=== PATIENT | female | born 1995 | race Two or more races ===

== ENCOUNTER 2024-11-14 11:45 | Emergency (ER) | payer MEDICAID, SELFPAY ==
[2024-11-14 11:51] VITALS: BP 153/83; PULSE 84; RESP 18; TEMP 36.8; O2SAT 98; BMI 28.3
--- NOTE | 2024-11-14 12:10 | XR_ITS ---
Examination: PA lateral chest 2 views TECHNIQUE: Upright PA lateral chest 2 views Exam date and time: November 14, 2024 1243 hours INDICATIONS: Painful lump on the right breast FINDINGS: Normal heart size Lungs are clear. The osseous structures are intact IMPRESSION: No active disease Consider ultrasound right breast follow-up
--- NOTE | 2024-11-14 12:10 | XR_ITS ---
Examination: Breast ultrasound, unilateral, right complete Date and time of exam: November 14, 2024 1337 hours INDICATIONS: Right breast pain beginning 2 weeks ago, lump in the right breast note is beginning 4 days ago Technique: Real-time garnica scale ultrasonographic imaging performed right breast including all 4 quadrants as well as nipple retroareolar and axillary region. Findings: No cystic or solid mass IMPRESSION: BI-RADS Category 1: Negative study If palpable lump persists, consider diagnostic mammography follow-up
--- NOTE | 2024-11-14 14:33 | EDNOTE_ITS ---
ED Skin Abcess FB-RME/HPI General Chief complaint: Skin/Abscess/Foreign Body Stated complaint: PAINFUL LUMP ON RIGHT BREAST Time Seen by Provider: 11/14/24 11:48 Arrival date/time: 11/14/24 11:45 29-year-old female presents to the emergency department with complaints of right-sided rib pain right sided breast pain patient for symptoms ongoing for last couple of days patient reports she feels a lump Limitations: no limitations Related Data Previous Rx's ?Medication ?Instructions ?Recorded metoclopramide HCl 10 mg tablet 10 mg PO Q6H PRN nausea and 12/31/20 (Reglan) vomiting #14 tabs Allergies Allergy/AdvReac Type Severity Reaction Status Date / Time No Known Allergies Allergy Verified 11/14/24 11:47 Review of Systems Review of Systems Systems Reviewed: All systems reviewed, normal except as documented Constitutional Constitutional: Reports system reviewed and no additional complaints, except as documented, Denies fever(s) and Denies headache(s) Eyes Eyes: Reports system reviewed and no additional complaints, except as documented and Denies blurry vision ENT Ears, Nose, Mouth, and Throat: Reports system reviewed and no additional complaints, except as documented, Denies headache(s), Denies nasal congestion and Denies nasal discharge Cardiovascular Cardiovascular: Reports system reviewed and no additional complaints, except as documented, Denies chest pain and Denies dyspnea Respiratory Respiratory: Reports system reviewed and no additional complaints, except as documented, Denies chest congestion, Denies cough and Denies dyspnea Gastrointestinal Gastrointestinal: Reports system reviewed and no additional complaints, except as documented and Denies abdominal pain Musculoskeletal Musculoskeletal: Reports system reviewed and no additional complaints, except as documented and Reports other (Rib pain right) Integumentary/Breasts Skin/Breast: Reports system reviewed and no additional complaints, except as documented, Denies rash and Reports breast pain (Right-sided breast pain) Neurologic Neurologic: Reports system reviewed and no additional complaints, except as documented, Reports as per HPI and Denies headache(s) Past Medical History Past Medical History NEUROLOGIC: Negative Neurological Disorders or Seizures CARDIAC: Negative Cardiac Disorders or Congestive Heart Failure RESPIRATORY: Negative Chronic Obstructive Pulmonary Disease (COPD) GASTROINTESTINAL: Positive Gastrointestinal Disorders and Gall Bladder Disease (HX. GALLSTONES); Negative Hepatitis GENITOURINARY: Negative Genitourinary Disorders or Renal Disease REPRODUCTIVE: Positive Previous Pregnancies () MUSCULOSKELETAL: Negative Musculoskeletal Disorders ENDOCRINE: Negative Endocrine Disorders, Diabetes Mellitus Type 1 or Diabetes Mellitus Type 2 HEMATOLOGIC: Positive Blood Disorders and Anemia (iron infusions) OTHER HISTORY: Positive Hospitalization (CHILDBIRTH); Negative Autoimmune Disease, Down Syndrome, Developmental Delay, Shingles, Falls, Blood Transfusions, Anesthesia Reactions, MRSA, VRSA, Vancomycin- Resistant Enterococci, Human Immunodeficiency Virus (HIV), Chicken Pox, Measles, Mumps, Rubella (Czech Measles), Pertussis, Clostridium Difficile or Cancer Family History FAMILY HISTORY: Negative Family Psychiatric Problems, Family Respiratory Disorders, Family Cardiac Disorders, Family Gastrointestinal Problems, Family Cancer, Family Surgery or Family Anesthesia Reaction Surgical History SURGICAL: Positive Section (x1) Social History SMOKING STATUS: Never smoker ED Exam General Limitations: Present no limitations General appearance: Present alert and in no apparent distress Head Head exam: Present atraumatic, normocephalic and normal inspection Eye Eye exam: Present normal appearance, PERRL and EOMI; Absent conjunctival injection ENT ENT exam: Present normal exam, normal oropharynx and mucous membranes moist Neck Neck exam: Present normal inspection, full ROM and trachea midline; Absent tenderness Chest Chest inspection: Present normal inspection, symmetric chest wall rise and tenderness (Right-sided chest wall pain) Respiratory Respiratory exam: Present normal lung sounds bilaterally Cardiovascular Cardiovascular exam: Present regular rate, normal rhythm and normal heart sounds Abdominal Exam Abdominal exam: Present soft and normal bowel sounds; Absent distention, tenderness, guarding, rebound or rigidity Extremities Exam Extremities exam: Present normal inspection and full ROM Back Exam Back exam: Present normal inspection and full ROM Neurological Exam Neurological exam: Present alert, oriented X3, CN II-XII intact, normal gait and reflexes normal; Absent motor sensory deficit Psychiatric Psychiatric exam: Present normal affect and normal mood Skin Skin exam: Present warm, dry, intact and normal color; Absent rash Course Quality Measures none Orders Category Date Time Status US breast RT complete Stat Exams 11/14/24 12:10 Completed XR chest 2V Stat Exams 11/14/24 12:10 Completed Vital Signs Vital signs: Vital Signs Temperature 98.3 F 11/14/24 11:51 Pulse Rate 84 11/14/24 11:51 Respiratory Rate 18 11/14/24 11:51 Blood Pressure 153/83 H 11/14/24 11:51 Pulse Oximetry (%) 98 11/14/24 11:51 Oxygen Delivery Method Room Air 11/14/24 11:51 O2 saturation 98% room air within normal limits Skin / Abscess / Foreign Body MDM Narrative MDM Narrative:: 29-year-old female presents to the emergency department with complaints of right-sided rib pain right sided breast pain patient for symptoms ongoing for last couple of days patient reports she feels a lump On exam patient does not appear ill or toxic in no acute distress X-ray of the chest obtained and ultrasound of the breast obtained no acute emergent findings noted Clinically I do not feel any lumps or abnormalities Patient discharged home in no distress to follow-up with primary care doctor in the next 24 to 48 hours and for any worsening symptoms to return to the ER immediately Patient data External records reviewed:: [facility] previous records Clinical information provided by:: patient Social determinants that could affect healthcare access:: none Patient has the following chronic illnesses:: None How is presenting disease/condition affected by chronic disease/condition?: no chronic disease Evaluation data The following diagnostics were reviewed and interpreted by me:: radiology exam(s) Lab and/or radiology exams considered but not ordered:: Radiology obtained Interpretation Summary: By me reviewed Medications / Prescriptions Medications or Prescriptions considered but not ordered:: Given no meds Medication administrations:: No meds given Consultations Consultation(s) initiated? (list below): No Diagnosis Skin/Abscess Differential Diagnosis: abscess of skin or subcutaneous tissue, cellulitis and other Most likely diagnosis given after review of the tests above:: Rib pain, breast pain Admission Indicated Admission indicated?: not indicated Admission Request Was there a request for admission?: No Disposition Plan Disposition Plan: Discharge Discharge Attestation Discharge Attestation: The patient and all family members were given an opportunity to ask questions and understood the discharge instructions. Discharge instructions specifically effects, indications for sooner follow up or return to the emergency department, and the expected course of current diagnosis. Patient condition: Stable Discharge Plan Plan Patient Disposition: HOME (Self Care) Disposition Comment: Stable Prescriptions/Referrals Prescriptions/Med Rec: No Action metoclopramide HCl [Reglan] 10 mg tablet 10 mg PO Q6H PRN (Reason: nausea and vomiting) Qty: 14 0RF Referrals: Traci Vásquez FNP [Primary Care Provider] - 11/15/24 Problem List Clinical Impression: Right-sided chest wall pain Patient/Caregiver Discharge Instructions Education Materials: ED Chest Pain, Noncardiac Additional Instructions: Please follow up with your primary care doctor in the next 24-48hrs for any worsening symptoms return here immediately Print Language: [place]se Stand Alone Forms: Mikaela Award Info., Patient Portal Info Letter PA/CANCER PROGRAM DIRECTOR Supervising Physician PA/CANCER PROGRAM DIRECTOR Supervising Physician: Dr Yuan
== END 2024-11-14 14:50 | disposition home or self-care (01) ==
PROVIDERS: Emergency Provider Emergency Medicine; PCP Nurse Practitioner Family
DX: R07.89 Other chest pain (principal); N63.10 Unspecified lump in the right breast, unspecified quadrant
CPT/HCPCS: 71046; 76641; 99284

== ENCOUNTER → 2024-11-25 | Outpatient (CLI) | payer MEDICAID, SELFPAY ==
--- NOTE | 2024-11-25 13:00 | XR_ITS ---
Examination: Diagnostic digital mammography, unilateral, right Computer aided detection 3-D breast Tomosynthesis, unilateral Date and time of exam: November 25, 2024 1248 hours INDICATIONS: Patient states a lump in the right breast 3 weeks, outer slightly upper right breast Technique: Nonmagnified MLO, CC views of the right breast have been obtained, reconstructed from 3-D Tomosynthesis images. R2 computer aided detection program utilized for evaluation of suspicious masses and/or abnormal calcifications. 3-D Tomosynthesis images obtained. Findings: The breast is heterogeneously dense, which may obscure small masses 12 mm nodule is confirmed at the palpable marker site outer right breast Impression: BI-RADS category 0: Incomplete: Need additional imaging evaluation This patient should return for dedicated right breast sonography with the radiologist in attendance
== END | disposition home or self-care (01) ==
PROVIDERS: PCP Nurse Practitioner Family; Referring Provider Nurse Practitioner Family; Visit Provider Nurse Practitioner Family
DX: R92.8 Other abnormal and inconclusive findings on diagnostic imaging of breast (principal)
CPT/HCPCS: 77061; 77065; G0279

== ENCOUNTER → 2025-02-17 | Outpatient (CLI) | payer MEDICAID, SELFPAY ==
--- NOTE | 2025-02-17 09:00 | XR_ITS ---
Examination: Breast ultrasound, unilateral, right complete Date and time of exam: February 17, 2025 0935 hours Comparison November 14, 2024 INDICATIONS: Patient states palpable lump upper outer right breast noticed 4 months ago Technique: Real-time garnica scale ultrasonographic imaging performed right breast including all 4 quadrants as well as nipple retroareolar and axillary region. Findings: No cystic or solid mass IMPRESSION: BI-RADS Category 1: Negative study If palpable abnormality persists, repeat the right breast sonogram in 3-6 months
== END | disposition home or self-care (01) ==
PROVIDERS: PCP Nurse Practitioner Family; Referring Provider Nurse Practitioner Family; Visit Provider Nurse Practitioner Family
DX: R92.8 Other abnormal and inconclusive findings on diagnostic imaging of breast (principal)
CPT/HCPCS: 76641